=== PATIENT | female | born 1980 | race Caucasian/White ===

== ENCOUNTER 2019-10-11 00:14 | Outpatient (CLI) | payer OTHER, SELFPAY ==
[2019-10-11 18:35] LABS: SARS-CoV-2 RNA PCR Negative
== END 2019-10-11 00:15 | disposition home or self-care (01) ==
LOC: ANHCOVIDDT 00:14
PROVIDERS: Visit Provider Obstetrics & Gynecology Gynecology
DX: Z01.812 Encounter for preprocedural laboratory examination (principal); Z20.828 Contact with and (suspected) exposure to other viral communicable diseases
CPT/HCPCS: 87635; C9803; U0003

== ENCOUNTER 2019-10-14 00:53 | Day surgery (SDC) | payer OTHER, SELFPAY ==
[2019-09-27 11:25] VITALS: BMI 36.0
[2019-10-14] VITALS (9 sets, daily range): BP systolic 120–149; BP diastolic 65–90; PULSE 70–89; RESP 12–20; TEMP 36.1–36.9; O2SAT 94–100
[2019-10-14] MEDS: ACETAMINOPHEN 500 MG TABLET 1000 MG PO (06:30)
[2019-10-14] MEDS: LACTATED RINGERS 1,000 ML 30 ML IV CONT ×2 (06:32→08:31)
[2019-10-14] MEDS: KETOROLAC 15 MG/ML VIAL (*BKC) IV PUSH (06:37)
--- NOTE | 2019-10-14 07:00 | P.PNAN_ITS ---
Anes - Initial Pre Proc Eval Procedure: Operation Date: 10/14/19 07:30 Proposed Procedures p Laparoscopic Bilateral Tubal Ligation With Fallopian Rings - Christen Toure MD Date/Time: 10/14/19 07:00 Surgeon: Christen Toure MD Pre Op Diagnosis: Desires Sterilization Patient Data Age: 38 Gender: F Height: 5 ft 7 in Weight: 100.4 kg Last Vital Signs Temp 98.5 F 10/14/19 06:19 Pulse 81 10/14/19 06:19 Resp 20 10/14/19 06:19 BP 125/82 10/14/19 06:19 Pulse Ox 100 10/14/19 06:19 Allergies Allergy/AdvReac Type Severity Reaction Status Date / Time nickel Allergy SKIN Verified 09/27/19 11:27 REACTION Penicillins Allergy UNKNOWN Verified 09/27/19 11:27 REACTION- OCCURED CHILD Home Medications Medication Instructions Recorded Confirmed Type cyanocobalamin (vitamin B-12) 1,000 mcg PO DAILY 09/27/19 09/27/19 History [Vitamin B-12] ergocalciferol (vitamin D2) 50,000 unit PO 2XW 09/27/19 09/27/19 History multivitamin 1 tablet PO DAILY 09/27/19 09/27/19 History Patient hx anesthesia problems: none Family hx anesthesia problems: none [facility] Past Medical History Medical History (Updated 10/14/19 @ 06:55 by Nelson Casarez MD) Anxiety Depression Hyperlipidemia Social History Social History Smoking packs per day: 0.5 Smoking cigarettes per day: 10.0 Years smoked: 20 Smoking pack-years: 10.00 Smoking status: Current some day smoker Tobacco type: cigarettes Alcohol intake: current Drinks per week: 6 Substance use: current Substance use type: marijuana Last use: 09/22/19 Spiritual care concerns: No Anes - Eval Final PreProcedure Day of Procedure 10/14/19 07:00 Patient weight: obese Heart: regular rate and rhythm Lungs: clear to auscultation Airway: Mallampati scale class II Neurological: alert and oriented Last oral intake: >/= 8 hours ASA classification: III Emergent: no Anesthetic plan: proceed Anesthesia type and monitoring: general ETT and standard monitoring Informed Consent: The patient's anesthetic plan and its attendant risks and benefits were discussed with the patient/family/POA. Questions were solicited and answers provided to the satisfaction of the patient/family/POA.
--- NOTE | 2019-10-14 07:19 | PM.HPGS ---
History of Present Illness History of Present Illness Consent: Risks, benefits, and alternatives have been discussed and questions answered. Patient agrees to proceed with procedure. Chief complaint: Desires Sterilization Narrative: Shereen Alcaraz is a 38 year old female G0 who has no desire or plans for having children. She has had a Paragard IUD for 10 years and decided to proceed with sterilization with laparoscopic BTL instead of replacing her IUD. Will remove her IUD at the same time. Reviewed pros and cons of each. Reviewed risks of surgery including infection, bleeding, injury to internal organs, failure with increased ectopic , and general anesthesia. Also reviewed the permanent and irreversible nature of BTL. Patient wants to proceed and agrees to risks. [facility] Past Medical History Medical History (Updated 10/14/19 @ 07:22 by Christen Toure MD) Anxiety Depression Hyperlipidemia Social History Social History Smoking packs per day: 0.5 Smoking cigarettes per day: 10.0 Years smoked: 20 Smoking pack-years: 10.00 Smoking status: Current some day smoker Tobacco type: cigarettes Alcohol intake: current Drinks per week: 6 Substance use: current Substance use type: marijuana Last use: 09/22/19 Spiritual care concerns: No Meds Home Medications and Allergies Home Medications Medication Instructions Recorded Confirmed Type cyanocobalamin (vitamin B-12) 1,000 mcg PO DAILY 09/27/19 09/27/19 History [Vitamin B-12] ergocalciferol (vitamin D2) 50,000 unit PO 2XW 09/27/19 09/27/19 History multivitamin 1 tablet PO DAILY 09/27/19 09/27/19 History Allergies Allergy/AdvReac Type Severity Reaction Status Date / Time nickel Allergy SKIN Verified 09/27/19 11:27 REACTION Penicillins Allergy UNKNOWN Verified 09/27/19 11:27 REACTION- OCCURED CHILD Vital Signs Vital Signs - 24 hr 10/14/19 06:19 Temperature 98.5 F Pulse Rate 81 Respiratory Rate 20 Blood Pressure 125/82 Pulse Oximetry 100 Exam Const: General: healthy appearing and alert Orientation/consciousness: patient oriented x3 Resp: Effort & Inspection: normal respiratory effort Auscultation: clear to auscultation bilaterally Cardio: Rate: regular rate Rhythm: regular rhythm GI: GI Palp: Yes Soft to palpation, No Tenderness to palpation present (GI) and No Palpable mass present : External Female Exam: normal external appearance Speculum Exam - Vagina: normal appearance of the vagina and normal vaginal discharge Speculum Exam - Cervix: normal appearance of the cervix Bimanual exam- vagina & uterus: uterine size normal and consistency normal Bimanual Exam- Adnexa, other: normal adnexae and No adnexal tenderness Neuro: General: patient oriented x3 Assessment and Plan Assessment and plan (1) Encounter for sterilization: Code(s): Z30.2 - Encounter for sterilization Status: Acute Assessment and Plan: Plan to proceed with laparoscopic BTL with falope rings and removal of IUD.
[2019-10-14] MEDS: METHYLENE BLUE 0.5% INJ 10 ML AMPULE 20 ML IRRIGATION (08:16)
--- NOTE | 2019-10-14 08:23 | PM.OP ---
Procedure Note - Brief Procedure Note - Brief Date of procedure: 10/14/19 Pre-op diagnosis: Desires Sterilization Post-op diagnosis: same Procedure performed: laparoscopic BTL with falope rings, bipolar cautery on Left, chromopertubation; removal of IUD Anesthesia: GETA Surgeon: Christen Toure MD Estimated blood loss (mL): 5 Drains: No Packing: No Pathology: none sent Complications: Other complications (left tubal transection near left cornua) Condition: stable Disposition: PACU Findings: normal appearing tubes, ovaries, and uterus; Uterus sounds to 7 cm
--- NOTE | 2019-10-14 08:35 | P.OP_ITS ---
Procedure Note - Detailed Date of procedure: 10/14/19 Pre-op diagnosis: Desires Sterilization requests IUD removal Post-op diagnosis: same Procedure performed: Laparoscopic bilateral tubal ligation with Falope rings, cauterization of left fallopian tube, and chromopertubation Description of procedure: The patient was taken to the operating room and placed under general anesthesia in the dorsal lithotomy position. She was prepped and draped in the usual sterile fashion. [place] speculum was placed in the vagina, the cervix was grasped with tenaculum anteriorly, using a Peon the IUD was removed intact and discarded.The acorn manipulator was placed. The speculum was removed. Attention was turned to the abdomen. A vertical skin incision was made at the base of the umbilicus with a scalpel. The abdomen was tented and the varies needle placed. Water drop test is normal opening patient pressure is 10mmHg. Pneumoperitoneum was obtained to patient pressure of 15mmHg. The Veress needle is removed removed. The abdomen is tented with towel clamps and the 5mm Optiview trocar was placed. Placement is confirmed with the laparoscope. The patient is placed in Trendelenburg and a horizontal skin incision is made 2cm above the symphysis pubis. The 8mm trocar placed under direct visualization. The tubes were brought into the view of the operative field using a blunt probe. The ring applicators placed through the lower port in the right tube grasped with the applicator a good loop of tube was brought into the applicator and the ring was applied. The left tube is grasped with the applicator a good loop of tube was brought into the applicator. When the ring was applied the tube was transected near the cornua. The bipolar cautery is used to cauterize the proximal end of the tube. Due to it being right at the cornua, the methylene blue dye was placed through the acorn manipulator. This did not have a good seal and leaked. The acorn manipulator was removed and a 6cm ALEKSANDAR manipulator was placed. Methylene blue dye was then able to be injected into the uterine cavity, no dye was leaked out of either tube, and dye was not leaking out vaginally 20cc were used. The vaginal instruments are then removed. The trocars are removed after the Pneumoperitoneum is reduced. The skin incisions are closed with for an interrupted fashion. The patient is then awakened from anesthesia and taken to recovery in stable condition. Anesthesia: GETA Surgeon: Christen Toure MD Estimated blood loss (mL): 5 Drains: No Packing: No Pathology: other (IUD discarded) Complications: No immediate complications Condition: stable Disposition: PACU Findings: normal appearing tubes, ovaries, and uterus
[2019-10-14] MEDS: ONDANSETRON INJ 4 MG/2 ML VIAL IV PUSH (10:33)
== END 2019-10-14 11:06 | disposition home or self-care (01) ==
PROVIDERS: Visit Provider Obstetrics & Gynecology Gynecology
PROC: (CPT 58671; principal; 2019-10-14 07:30)
DX: Z30.2 Encounter for sterilization (principal); Z30.432 Encounter for removal of intrauterine contraceptive device; E66.9 Obesity, unspecified; Z68.34 Body mass index [BMI] 34.0-34.9, adult; F41.9 Anxiety disorder, unspecified; F32.9 Major depressive disorder, single episode, unspecified; E78.5 Hyperlipidemia, unspecified; Z88.0 Allergy status to penicillin
CPT/HCPCS: 58671; 58670; 58301; A4264; A9270; J0330; J1170; J1885; J2250; J2405; J2704; J3010; J7120; Q9968